=== PATIENT | female | born 1965 | race Caucasian/White ===

== ENCOUNTER 2019-03-14 08:29 | Inpatient (IN) | payer OTHER ==
[~2019-03-14] VITALS: Ht 152.4 cm; Wt 79.4 kg
[2019-03-14 08:32] VITALS: BP 161/80
[2019-03-14] MEDS ORDERED: CENTRUM SILVER1 EAC4 PO (08:39)
[2019-03-14] MEDS ORDERED: TACROLIMUS0.5 MG PO (08:39)
[2019-03-14] MEDS ORDERED: OMEPRAZOLE20 M2 PO (08:39)
[2019-03-14] MEDS ORDERED: IRON325 PO (08:40)
[2019-03-14] MEDS ORDERED: CALCIUM 600 +1 EAC1 PO (08:40)
[2019-03-14 09:39] LABS: ABSOLUTE EOSINOPHILS 0.1 thou/uL (0.0-0.7); ABSOLUTE LYMPHOCYTES 1.1 thou/uL (0.8-5.3); ABSOLUTE MONOCYTES 0.4 thou/uL (0.0-1.2); ABSOLUTE NEUTROPHILS 4.1 thou/uL (1.6-8.1); BASOPHILS 0.6 %; EOSINOPHILS 1.7 %; HEMOGLOBIN 13.8 gm/dL (12.0-15.0); LYMPHOCYTES 19.1 %; MCH 32.6 pg (26.0-34.0); MCHC 34.6 g/dL (28.0-37.0); MCV 94.2 fL (80.0-100.0); MONOCYTES 6.8 %; MPV 8.4 fl. (7.2-11.1); NUCLEATED RBCS 0 /100WBC; PLATELET COUNT* 132 thou/uL (150-400); POLYS 71.8 %; RBC 4.25 mil/uL (4.20-5.00); RDW-CV 13.4 % (10.5-14.5); WBC 5.7 thou/uL (4.0-11.0)
[2019-03-14 09:48] LABS: CALCIUM 8.9 mg/dL (8.5-10.1); POTASSIUM 4.1 mmol/L (3.5-5.1)
[2019-03-14 10:03] LABS: ALBUMIN 3.2 g/dL (3.4-5.0); TOTAL BILIRUBIN 0.4 mg/dL (<0.1-1.0); TOTAL PROTEIN 6.5 g/dL (6.4-8.2); TROPONIN-I LEVEL 0.19 ng/mL (<0.06)
--- NOTE | 2019-03-14 11:17 | NUR ---
REPORT GIVEN TO JANICE TORRES WHO IS TO ASSUME PT CARE INPATIENT NURSE.
[2019-03-14 11:19] VITALS: BP 121/70
[2019-03-14 11:40] VITALS: BP 130/70
[2019-03-14 16:15] VITALS: BP 117/62
--- NOTE | 2019-03-14 19:28 | NUR ---
ASSUMED PT CARE AT 1200, AOX4, UP AD MADI, 02 SAT 90'S RA. PT FROM ER. GET SITUATED TO ROOM. ADMISSION ASSESSMENT DONE. TELE IN PLACED, TRACING SR ON MONITOR. PT ON HEPARIN DRIP. PT HAD CRITICAL TROPONIN NOTIFIED. PT HAD CHEST PAIN AROUND 1816, RELIEVED BY NITROGLYCERIN, DR NOTIFIED. EKG DONE. HOURLY ROUNDING. CALL LIGHT WITHIN REACH. GIVE REPORT TO NURIS. WILL CONTINUE TO MONITOR.
[2019-03-14 20:00] VITALS: BP 126/67
[2019-03-15] VITALS: BP 131/68
[2019-03-15 04:00] VITALS: BP 128/70
[2019-03-15 05:06] LABS: HEMATOCRIT 42.9 % (37.0-47.0); HEMOGLOBIN 14.4 gm/dL (12.0-15.0); MCH 31.8 pg (26.0-34.0); MCHC 33.6 g/dL (28.0-37.0); MCV 94.7 fL (80.0-100.0); MPV 8.9 fl. (7.2-11.1); RBC 4.53 mil/uL (4.20-5.00); RDW-CV 13.3 % (10.5-14.5); WBC 6.7 thou/uL (4.0-11.0)
[2019-03-15 05:19] LABS: CHOLESTEROL 207 mg/dL (<200); HDL CHOLESTEROL 38 mg/dL (>40); LDL CHOLESTEROL 125 mg/dL (<100); TC:HDL 5.4 Ratio (Not establshd); TRIGLYCERIDE 222 mg/dL (<150); VLDL 44 mg/dL (<40)
[2019-03-15 05:47] LABS: SERUM ASSESSMENT CLEAR
[2019-03-15 08:00] VITALS: BP 154/83
--- NOTE | 2019-03-15 10:09 | CON ---
[facility] [address] [place] [address] CONSULTATION Name: CAROLE SORTO Room: [place] [address] ADM IN M.R.#: [id number] Admission: 03/14/19 Attend Phys: Comfort Joe Discharge: Date of : 61 Report #: [id number] THIS REPORT FOR: //name// CC: NIDHI Medeiros INDICATION: Non-ST elevation myocardial infarction. HISTORY OF PRESENT ILLNESS: The patient is a very pleasant 53-year-old white female who presented to the Emergency Room this morning with typical chest discomfort radiating to the jaw and right arm. The pain lasted for approximately 1 hour. She received aspirin and nitroglycerin in the Emergency Room with resolution of her pain. Her troponin has elevated to 0.55 consistent with non-ST elevation myocardial infarction. EKG shows sinus rhythm without ST elevation. There is very subtle ST-segment depression in anterolateral leads. At the time of interview, she is pain free. For the past week, she has been having some midsternal chest discomfort radiating to the jaw and right arm that has been fairly mild and associated with exertion and relieved with rest. This morning when she woke up, she had recurrence of the pain that was more severe. She presented to the Emergency Room. She has no prior cardiac history. Risk factors include tobacco use, hypertension, and family history of premature atherosclerotic coronary artery disease. PAST MEDICAL AND SURGICAL HISTORY: 1. Orthotopic liver transplant. 2. Hepatitis C, resolved with medications. 3. Cholecystectomy. 4. Hysterectomy. 5. Anxiety. 6. Chronic tobacco use. 7. Hypertension. FAMILY HISTORY: The patient's mother and sister both had myocardial infarctions with revascularization. SOCIAL HISTORY: The patient is . She is currently working. She smokes a pack and half cigarettes daily. She drinks alcohol occasionally. ALLERGIES: ERYTHROMYCIN AND CODEINE. HOME MEDICATIONS: Calcium carbonate 1 tablet daily, iron sulfate 325 mg daily, multivitamin 1 tablet daily, omeprazole 20 mg daily, tacrolimus 0.5 [place] [address] CONSULTATION Name: CAROLE SORTO Room: [address] IN [facility]#: [id number] Admission: 03/14/19 Attend Phys: Comfort Joe Discharge: Date of : 61 Report #: [id number] REVIEW OF SYSTEMS: A 14-point review of systems is positive for cough, productive of yellow to brown sputum. She reports chest discomfort, dyspnea and orthopnea. She reports a history of hepatitis C and liver transplant. She reports a history of medical allergies as outlined above. She has anxiety without depression. She wears reading glasses without acute visual loss. Otherwise, 14-point review of systems was unremarkable. Possible claudication. PHYSICAL EXAMINATION: VITAL SIGNS: Stable. Blood pressure 130/70, pulse 71, regular. GENERAL: This is a pleasant lady who is currently in no distress. Mood and affect appropriate. HEENT: Extraocular muscles intact. Mucous membranes moist. NECK: Shows no jugular venous distention. There are no carotid bruits. CHEST: Reveals clear lung nielsen without wheezes or rales. CARDIOVASCULAR: Reveals regular rhythm, normal S1 and S2. I do not appreciate gallop or murmur. ABDOMEN: Reveals normal bowel sounds. The abdomen is soft, nontender. EXTREMITIES: Shows no edema. She has a good distal pulse in the right lower extremity. Diminished distal pulses in the left lower extremity. LABORATORY DATA: Reviewed. Sodium 142, potassium 4.1, chloride 108, bicarbonate 25, BUN 15, creatinine 1.0. Serum glucose 132. LFTs within normal limits. Albumin 3.2. Troponin initially 0.19 and now 0.55. NT-proBNP 880. White blood cell count 5.7, hemoglobin 13.8, platelet count 132,000. Chest x-ray shows normal cardiac silhouette without acute abnormality. IMPRESSION AND RECOMMENDATIONS: Non-ST elevation myocardial infarction. We will continue aspirin, start heparin drip, start beta ana. PLAN: 1. Coronary angiography with intervention pending results of that test. 2. Hypertension. Start metoprolol 25 mg b.i.d. 3. Possible hyperlipidemia. We will check fasting lipid profile. 4. Chronic tobacco use, cessation advised. 5. Family history of premature atherosclerotic coronary artery disease. <ELECTRONICALLY SIGNED> By: Omkar Clements MD, FACC 03/15/19 1009 1238 [id number] Clements MD, FACC /nt
--- NOTE | 2019-03-15 11:31 | NUR ---
ASSUMED PT CARE AT O800, AOX4, UP AD MADI, O2 SAT 90'S RA. TRACING SR ON TELE. DENIES PAIN. PT HAS HEPARIN DRIP. FOR HEART CATH TOMORROW. VSS, AM ASSESSMENT CHARTED. MEDS GIVEN PER MAR. HOURLY ROUNDING. CALL LIGHT WITHIN REACH. WILL CONTINUE TO MONITOR.
[2019-03-15 12:00] VITALS: BP 132/75
[2019-03-15 13:22] LABS: INR 1.1; PROTIME 10.8 Seconds (9.20-11.50)
[2019-03-15 16:00] VITALS: BP 100/49
--- NOTE | 2019-03-15 19:57 | NUR ---
APTT THERAPEUTIC 67.9, NEXT APTT ENTERED IN COMPUTER TO BE DRAWN ON 03/16/19 IN AM PER PROTOCOL. NO S/S ACTIVE BLEEDING NOTED AT PRESENT TIME.
[2019-03-15 20:00] VITALS: BP 125/48
[2019-03-16] VITALS (8 sets, daily range): BP systolic 113–149; BP diastolic 55–80
--- NOTE | 2019-03-16 05:53 | NUR ---
PROGRESSING TOWARDS GOALS, AWAKE UP IN ROOM WITH STEADY GAIT OFF AND ON DURING NOC, DENIES CP OR DISCOMFORT, RESP EVEN AND NONLABORED ON RA, CONTINUES ON HEPARIN GTT VIA INFUSION PUMP, NO S/S ACTIVE BLEEDING NOTED. 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
--- NOTE | 2019-03-16 07:46 | NUR ---
INITIAL ASSESSMENT COMPLETED CHARTED. VSS. TRACING SR ON MONITOR. PT IS UP AD MADI WITH STEADY GAIT. CONSENT OBTAINED FOR PROCEDURE TODAY. PT IS CURRENTLY NPO FOR UPCOMING PROCEDURE. DENIES PAIN, CP, SOA, N/V/D AT THIS TIME. HOURLY ROUNDING IN PLACE FOR PT SAFETY. CLWR.
--- NOTE | 2019-03-16 12:19 | EKG ---
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
--- NOTE | 2019-03-16 12:24 | EKG ---
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
[2019-03-17] VITALS: BP 146/81
[2019-03-17 04:00] VITALS: BP 152/60
[2019-03-17 04:36] LABS: HEMATOCRIT 40.6 % (37.0-47.0); HEMOGLOBIN 13.9 gm/dL (12.0-15.0); MCH 32.5 pg (26.0-34.0); MCHC 34.3 g/dL (28.0-37.0); MCV 94.8 fL (80.0-100.0); MPV 8.9 fl. (7.2-11.1); RBC 4.28 mil/uL (4.20-5.00); RDW-CV 13.7 % (10.5-14.5)
[2019-03-17 05:39] LABS: ALBUMIN 3.2 g/dL (3.4-5.0); CALCIUM 9.1 mg/dL (8.5-10.1); CREATININE 1.1 mg/dL (0.6-1.3); TOTAL BILIRUBIN 0.4 mg/dL (<0.1-1.0); TOTAL PROTEIN 6.7 g/dL (6.4-8.2)
[2019-03-17 05:53] LABS: TROPONIN-I LEVEL 0.65 ng/mL (<0.06)
[2019-03-17 08:00] VITALS: BP 125/61
--- NOTE | 2019-03-17 08:07 | NUR ---
ASSUMED PT CARE AT 1930. ASSESSMENT COMPLETED CHARTED. ABLE TO MAKE NEEDS KNOWN. UP AD MADI. PT TOOK SHOWER THIS MORNING AFTER A TV WOKE HER UP. NO C/O PAIN OR DISCOMFORT. RIGHT GROIN SITE IS C/D/I WITH NO BRUISING NOTED BUT PT STATED IT WAS SLIGHTLY TENDER TO TOUCH. PT RESTING IN BED AT THIS TIME. WILL CONTINUE TO MONITOR.
[2019-03-17 10:30] VITALS: BP 149/80
[2019-03-17 11:30] VITALS: BP 123/64
--- NOTE | 2019-03-17 12:53 | NUR ---
ASSUMED CARE OF PATIENT THIS AM AT 0730. PATIENT IS ALERT AND ORIENTED X 4. SHE DENIES CHEST PAIN AND SOA. CARDIOLOGY IN TO ROUND. PLANS DISCHARGE TODAY. TELE SHOWS NSR. RIGHT GROIN SITE IS D AND INTACT AND WITHOUT HEMATOMA.
[2019-03-17] MEDS ORDERED: NITROGLYCERIN0.4 MG SUBLING (13:13)
[2019-03-17] MEDS ORDERED: LIPITOR 20 MG T20 M1 PO (13:14)
[2019-03-17] MEDS ORDERED: LISINOPRIL10 MG PO (13:14)
[2019-03-17] MEDS ORDERED: ASPIR 8181 MG PO (13:15)
[2019-03-17] MEDS ORDERED: EFFIENT10 MG PO (13:16)
[2019-03-17] MEDS ORDERED: LOPRESSOR50 PO (13:17)
--- NOTE | 2019-03-17 15:54 | EKG ---
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: : 1965 Requested By: Jonathan Mcdonnell Order Number: [id number] Jesus MD: Omkar Clements Measurements Intervals [place] Rate: 69 P: 56 [place]: 155 QRS: 29 QRSD: 109 T: 1 QT: 415 QTc: 445 Interpretive Statements Sinus rhythm Minimal ST elevation, anterior leads Baseline wander in lead(s) V6 Compared to ECG 03/14/2019 18:46:12 ST (T wave) deviation now present Electronically Signed On 03-17-2019 15:54:17 CDT by Omkar Clements [email or web address] <ELECTRONICALLY SIGNED> By: Omkar Clements MD, FACC 03/17/19 1554 0541 0541 Omkar Clements MD, [facility] /EPI
--- NOTE | 2019-03-21 11:48 | CARD ---
[address] [address] CARDIAC CATH REPORT Name: CAROLE SORTO Room: [address] IN [facility]#: [id number] Admission: 03/14/19 Attend Phys: Comfort Joe Discharge: 03/17/19 Date of : 61 Report #: [id number] THIS REPORT FOR: //name// APPROVED REPORT Study performed: 03/16/2019 14:29:51 Patient Details Patient Status: In-Patient Room #: The patient is a 53 year-old female Event Personnel Jonathan Mcdonnell Chart Snatcher, Jonathan Mcguire (Cristiane) Blake Prince Jill RN Road Test Examiner, Iraj Ibrahim BLOOD BANK LABORATORY PROFESSIONAL Monitor, Yessenia Caldwell RTR Monitor, Kymberly Deluca RTR Monitor Procedures Performed Left Heart Cath w/or w/o Coronaries [id number] [facility] Place w/wo Plasty Single RCA [id number] , Selective Right and Left Coronary Angiography Indication Non-STEMI Risk Factors Hypercholesterolemia Admission/Lab Medications/Medications given during procedure Angiomax bolus and infusion Procedure Narrative The patient was brought electively to the Cardiac Catheterization Laboratory and was prepped and draped in a sterile manner. The right femoral was infiltrated with 2% Lidocaine subcutaneous anesthesia. A [place] 6 FR sheath was inserted into the RFA. Coronary angiography was performed using coronary diagnostic catheters. The right coronary system was accessed and visualized with a 3DRC 6fr catheter. The left coronary system was accessed and visualized with a JL4 catheter. The left ventricle was accessed and visualized with a PIG catheter. Left ventricular/Aortic Valve gradient assessed via catheter pullback. Pre-demployment femoral angiogram was performed . Closure device was deployed with a 6 Fr Angioseal STS 6Fr. The patient tolerated the procedure well and there were no complications associated with the procedure. [place] [address] CARDIAC CATH REPORT Name: NOREENCAROLEKENAN YEPEZ Room: [address] IN ..#: [id number] Admission: 03/14/19 Attend Phys: Comfort Joe Discharge: 03/17/19 Date of : 61 Report #: [id number] Intraoperative Conscious Sedation Fentanyl 25 mcg Dose: 1515 mGy Contrast Type and Amount: Visipaque 360 ml Coronary Angiography The patient's coronary anatomy is right dominant. Diagnostic Cath Left Main 0% narrowing LAD 30% mid vessel narrowing Circumflex 40% narrowing of the first and second marginal branches with 80% mid circumflex stenosis Right Coronary Large dominant vessel with 90% mid vessel stenosis and prominent intraluminal thrombus Left Ventriculography The left ventricle is normal in size with normal contractility. The left ventricular ejection fraction is estimated to be 60%. Left ventricular wall motion abnormalities are not present. There is no mitral insufficiency. Hemodynamics The aortic pressure is 130/61 mmHg with a mean of 85 mmHg. The left ventricular pressure is 129/-2 mmHg with a mean of mmHg. The left ventricular end diastolic pressure is 18 mmHg. There was no gradient across the aortic valve upon pullback. PCI Technique Lesion Patient was preloaded with Angiomax IV 12 mg per kg. Percutaneous coronary intervention was performed on the mid right coronary artery. The lesion stenosis prior to intervention was 90% with BEST 3 flow. A 6F 3DRC Guide Catheter was used to engage the Right ostium. A Mini Trek RX 2.0 X 12 Interventional Guidewire was used to cross the lesion. BALLOON DILATION A Balloon catheter Mini Trek RX 2.0 X 12 was inserted and inflated up to 12atm for 15seconds. STENT DEPLOYMENT A stent Randolph RX Stent 2.66I17cn,2.5x12 was inserted and inflated up to 14.00atm for 6seconds. Final angiography reveals 0 % stenosis with BEST 3 [place] [address] CARDIAC CATH REPORT Name: CAROLE SORTO Room: [address]#: [id number] Admission: 03/14/19 Attend Phys: Comfort Joe Discharge: 03/17/19 Date of : 61 Report #: [id number] Stent Deployment A stent Randolph RX Stent 2.5X12mm was inserted and inflated up to jany for seconds. Conclusion #1 Significant coronary artery disease characterized by the following: A 30% mid LAD narrowing B nondominant circumflex with 40% first and second marginal narrowing and 80% mid vessel stenosis C large dominant right coronary artery with 90% mid vessel stenosis and local thrombus at the site #2 normal left ventricular systolic function, estimate ejection fraction being 60% #3 modest elevation of left ventricular end-diastolic pressure at rest #4 successful percutaneous coronary intervention with deployment of sequential drug-eluting stents at the site of 90% mid right coronary stenosis with 0% residual narrowing following stent deployment and BEST-3 flow to the distal vessel with no residual thrombus Recommendations Cardiac Risk Reduction Program Aggressive Medical Therapy Medications Administered Aspirin (any) Prasugrel Diagnostic Cath Approved by: Jonathan Mcdonnell MD Date/Time: 03/21/2019 11:47:38 <ELECTRONICALLY SIGNED> By: Jonathan Mcdonnell MD, [facility] 03/21/19 1148 1148 1148Jonathan Mcdonnell MD, FACC /INF
== END 2019-03-17 13:30 | disposition home or self-care (01) | DRG 246 ==
LOC: M.ERS 08:29 → M.TBA-ER 10:22 → M.2W 10:22
PROVIDERS: Emergency Medicine Emergency Medical Services; Internal Medicine; Internal Medicine Cardiovascular Disease; ADMIT Internal Medicine
DX: I21.4 Non-ST elevation (NSTEMI) myocardial infarction (principal); I50.33 Acute on chronic diastolic (congestive) heart failure; Z94.4 Liver transplant status; F41.9 Anxiety disorder, unspecified; I10 Essential (primary) hypertension; F17.210 Nicotine dependence, cigarettes, uncomplicated; Z86.19 Personal history of other infectious and parasitic diseases; Z90.49 Acquired absence of other specified parts of digestive tract; Z90.710 Acquired absence of both cervix and uterus; Z82.49 Family history of ischemic heart disease and other diseases of the circulatory system; Z88.6 Allergy status to analgesic agent; Z88.1 Allergy status to other antibiotic agents; Z71.6 Tobacco abuse counseling; Z79.899 Other long term (current) drug therapy

== ENCOUNTER 2019-04-02 10:37 | Observation (INO) | payer OTHER ==
[~2019-04-02] VITALS: Ht 160 cm; Wt 74.8 kg
[2019-04-02] VITALS (10 sets, daily range): BP systolic 90–127; BP diastolic 52–80
[~2019-04-02 10:37] MED LIST: ASPIR 8181 MG PO; CALCIUM 600 +1 EAC1 PO; CENTRUM SILVER1 EAC4 PO; EFFIENT10 MG PO; IRON325 PO; LIPITOR 20 MG T20 M1 PO; LISINOPRIL10 MG PO; LOPRESSOR50 PO; NITROGLYCERIN0.4 MG SUBLING; OMEPRAZOLE20 M2 PO; TACROLIMUS0.5 MG PO
[2019-04-02 11:44] LABS: HEMOGLOBIN 13.7 gm/dL (12.0-15.0); MCHC 34.2 g/dL (28.0-37.0); MCV 93.5 fL (80.0-100.0); MPV 9.1 fl. (7.2-11.1); RBC 4.28 mil/uL (4.20-5.00); RDW-CV 12.9 % (10.5-14.5); WBC 9.3 thou/uL (4.0-11.0)
[2019-04-02 11:48] LABS: ANION GAP 10 mmol/L (7-16); BUN 28 mg/dL (7-18); CALCIUM 9.7 mg/dL (8.5-10.1); CHLORIDE 105 mmol/L (98-107); CO2 24 mmol/L (21-32); CREATININE 1.3 mg/dL (0.6-1.3); GLUCOSE 137 mg/dL (70-99); POTASSIUM 4.2 mmol/L (3.5-5.1); SODIUM 139 mmol/L (136-145)
[2019-04-02 11:49] LABS: INR 1.1; PROTIME 10.9 Seconds (9.20-11.50)
[2019-04-02 11:53] LABS: CHOLESTEROL 134 mg/dL (<200); HDL CHOLESTEROL 38 mg/dL (>40); LDL CHOLESTEROL 58 mg/dL (<100); TC:HDL 3.5 Ratio (Not establshd); TRIGLYCERIDE 190 mg/dL (<150); VLDL 38 mg/dL (<40)
[2019-04-02 11:54] LABS: SERUM ASSESSMENT Clear
--- NOTE | 2019-04-02 12:10 | EKG ---
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
--- NOTE | 2019-04-02 13:55 | CARD ---
[address] [address] CARDIAC CATH REPORT Name: CAROLE SORTO Room: [address] M.RLucian#: [id number] Admission: 04/02/19 Attend Phys: Jonathan Mcdonnell MD, Discharge: Date of : 61 Report #: [id number] THIS REPORT FOR: //name// APPROVED REPORT Study performed: 04/02/2019 11:59:00 Patient Details Patient Status: Observation Room #: Event Personnel Dr. Mcdonnell Procedures Performed Left heart catheterization selective coronary artery and percutaneous coronary intervention with deployment of drug-eluting stent in the mid circumflex Indication Unstable angina Risk Factors Hypercholesterolemia, Hypertension Previous Procedures/Diagnoses Previous PCI, Previous [place] Admission/Lab Medications/Medications given during procedure Angiomax bolus and infusion Procedure Narrative The patient was brought electively to the Cardiac Catheterization Laboratory and was prepped and draped in a sterile manner. The right femoral was infiltrated with 2% Lidocaine subcutaneous anesthesia. A 6 [place] sheath was inserted into the right femoral artery. Coronary angiography was performed using coronary diagnostic catheters. The right coronary system was accessed and visualized with a Diagnostic catheter. The left coronary system was accessed and visualized with a Diagnostic catheter. The left ventricle was accessed and visualized with a Diagnostic catheter. Left ventricular/Aortic Valve gradient assessed via catheter pullback. Pre-demployment femoral angiogram was performed . Closure device was deployed with a 6 Fr Angioseal. There was no hematoma. Diagnostic Cath [address] [place] [address] CARDIAC CATH REPORT Name: CAROLE SORTO Room: [address] M.R.#: [id number] Admission: 04/02/19 Attend Phys: Jonathan Mcdonnell MD, Discharge: Date of : 61 Report #: [id number] Left Main 10% distal narrowing LAD 20% mid LAD narrowing Circumflex 40 Percent first and second marginal narrowing with 80% mid circumflex stenosis Right Coronary 40% Ostial narrowing which may reflect catheter induced spasm followed by widely patent proximal and mid right coronary stents with 30% mid and distal right coronary narrowing Left Ventriculography Left Ventriculography was not performed. Hemodynamics The aortic pressure is 90/60 mmHg with a mean of mmHg. The left ventricular pressure is 18 mmHg with a mean of mmHg. There was no gradient across the aortic valve upon pullback. PCI Technique Lesion Anticoagulation was achieved with Angiomax. Percutaneous coronary intervention was performed on the mid circumflex. The lesion stenosis prior to intervention was 80% with BEST 3 flow. A 6 [place] XB 3 Guide Catheter was used to engage the ostium. A 014 [employer] flex Interventional Guidewire was used to cross the lesion. BALLOON DILATION A Balloon catheter 2.0 x 12 trek was inserted and inflated up to 10atm for 15seconds. STENT DEPLOYMENT A drug-eluting stent 2.0 x 12 anton was inserted and inflated up to 10atm for 10seconds. Final angiography reveals 0 % stenosis with BEST 3 flow. Conclusion #1 significant coronary artery disease characterized by the following: A 10% distal left main coronary artery narrowing B 20 percent mid LAD narrowing C nondominant circumflex with 40% first and second marginal narrowing and 80% [place] [address] CARDIAC CATH REPORT Name: CAROLE SORTO Room: [address] [place]#: [id number] Admission: 04/02/19 Attend Phys: Jonathan Mcdonnell MD, Discharge: Date of : 61 Report #: [id number] D dominant right coronary artery with 40% ostial narrowing which may reflect catheter induced spasm followed by widely patent proximal and mid right coronary stents with 30% mid and distal right coronary narrowing #2 moderate elevation of left ventricular end-diastolic pressure pressure at rest #3 successful percutaneous coronary intervention with deployment of drug-eluting stent at site of 80% midcircumflex stenosis with 0% residual narrowing and BEST-3 flow to the distal vessel Recommendations Cardiac Risk Reduction Program Aggressive Medical Therapy Medications Administered Aspirin (any) Prasugrel Diagnostic Cath Approved by: Jonathan Mcdonnell MD Date/Time: 04/02/2019 13:51:58 <ELECTRONICALLY SIGNED> By: Jonathan Mcdonnell MD, [facility] 04/02/19 1355 1355 1355Jonathan Mcdonnell MD, FACC /INF
--- NOTE | 2019-04-02 15:17 | EKG ---
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
--- NOTE | 2019-04-02 18:39 | NUR ---
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 RECEIVED REPORT PT AT 1350, AOX4, O2 SAT 90'S RA. GET SITUATED TO ROOM. TELE IN PLACED TRACING SR ON MONITOR. BEDREST POST CATH. VS MONITORED. R GROIN SITE C/D/I. PT COMPLAINS OF PAIN, MEDS GIVEN. I AGREE WITH ART ADMISSION ASSESSMENT. UNIT ADMISSION DONE. HOURLY ROUNDING OBSERVED, CALL LIGHT WITHIN REACH, WILL CONTINUE TO MONITOR.
[2019-04-03] VITALS: BP 85/39
[2019-04-03 03:47] VITALS: BP 113/61
[2019-04-03 03:48] LABS: HEMATOCRIT 32.6 % (37.0-47.0); MCH 32.5 pg (26.0-34.0); MCHC 34.6 g/dL (28.0-37.0); MCV 93.8 fL (80.0-100.0); MPV 9.2 fl. (7.2-11.1); RBC 3.47 mil/uL (4.20-5.00); RDW-CV 13.1 % (10.5-14.5); WBC 4.9 thou/uL (4.0-11.0)
[2019-04-03 04:08] LABS: ALBUMIN 2.7 g/dL (3.4-5.0); CALCIUM 8.3 mg/dL (8.5-10.1); HEMOGLOBIN 11.3 gm/dL (12.0-15.0); POTASSIUM 4.4 mmol/L (3.5-5.1); TOTAL BILIRUBIN 0.2 mg/dL (<0.1-1.0); TOTAL PROTEIN 5.7 g/dL (6.4-8.2); TROPONIN-I LEVEL 0.09 ng/mL (<0.06)
--- NOTE | 2019-04-03 06:54 | NUR ---
ASSUMED PT CARE AT 1930. ASSESSMENT COMPLETED CHARTED. ABLE TO MAKE NEEDS KNOWN. NO C/O PAIN OR DISCOMFORT. UP AD MADI, IV FLUIDS RUNNING PER ORDERS. PT UPSET ALL NIGHT ABOUT CATH PROCEDURE. PT RESTING IN BED AT THIS TIME, WILL CONTINUE TO MONITOR.
[2019-04-03 08:00] VITALS: BP 113/56
[2019-04-03 10:46] VITALS: BP 113/56
[2019-04-03 11:04] VITALS: BP 113/56
--- NOTE | 2019-04-03 11:14 | EKG ---
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: [facility] : 1965 Requested By: Jonathan Mcdonnell Order Number: [id number] Jesus MD: Jomar Jim Measurements Intervals [place] Rate: 75 P: 62 ND: 166 QRS: 42 QRSD: 97 T: 12 QT: 407 QTc: 455 Interpretive Statements Sinus rhythm Low voltage, precordial leads Compared to ECG 04/02/2019 14:00:21 Low QRS voltage now present Electronically Signed On 04-03-2019 11:13:52 CDT by Jomar Jim [email or web address] <ELECTRONICALLY SIGNED> By: Jomar Jim MD, [facility] 04/03/19 1113 0545 0545 Jomar Jim MD, [facility] /EPI
--- NOTE | 2019-04-03 12:30 | NUR ---
ASSUMED PT CARE AT 0730, FULL ASSESMENT DONE CHARTED.PT A/O X4, IRRITABLE, C/O PAIN AT RIGHT GROIN SITE WITH MOVEMENT AND TOUCH. MES GIVEN PER OCT. RIGHT GROIN DRESSING C/D/I, NO S/S HEMATOMA OR BLEEDING. PTS VSS, SR ON THE MONITOR. RECIEVED DISCHARGE ORDERS. REVIEWED DISCHARGE INSTRUCTIONS WITH PT AND HER , BOTH VERBALIZED UNDERSTANDING. PT DISCHARGED HOME WITH ALL BELONGINGS AT APPROX 1140
--- NOTE | 2019-04-03 14:20 | D ---
[address] [address] DISCHARGE SUMMARY Name: CAROLE SORTO Room: [address] Boaz MKateryna#: [id number] Admission: 04/02/19 Attend Phys: Jonathan Mcdonnell MD, Discharge: 04/03/19 Date of : 61 Report #: [id number] THIS REPORT FOR: //name// CC: Alonso Mcdonenll DATE OF SERVICE: 04/03/2019 FINAL DISCHARGE DIAGNOSES: 1. Unstable angina. 2. Coronary artery disease. 3. Status post recent non-ST segment elevation myocardial infarction. 4. Hypertension. 5. Hypercholesterolemia. PROCEDURES: On 04/02/2019 -- left heart catheterization, selective coronary arteriography and percutaneous coronary intervention of the mid circumflex. The patient is a 53-year-old female with coronary artery disease, approximately 10 days status post non-ST segment elevation myocardial infarction. I performed the intervention of the right coronary artery, deploying 2 drug-eluting stents with a good angiographic result and no residual thrombus at that site. She presented yesterday with recurrent chest discomfort and underwent re-catheterization, which revealed widely patent proximal and mid right coronary stents with 90% stenosis in the mid portion of the nondominant circumflex. There was mild LAD disease. I performed percutaneous coronary intervention of the circumflex, deploying one 2.0 x 12 mm [place] drug-eluting stent in the mid circumflex with 0% residual narrowing and BEST 3 flow of the distal vessel. The patient did well post-procedurally with minimal discomfort at the right femoral site postprocedurally. She ambulated without difficulty and there was no hematoma and good healing at the right femoral site. LABORATORY DATA: On 04/03/2019 revealed a sodium of 144, potassium 4.4, BUN 19, creatinine 1.0, glucose 95. Hemoglobin 11.3, white blood cell count 4900 with 118,000 platelets. Cholesterol 134, triglycerides 190, HDL 38, and LDL 58. The patient ambulated without difficulty and was discharged to home on the following medications: Aspirin 81 mg daily, atorvastatin 20 mg daily, calcium carbonate, vitamin D3 one tablet daily, ferrous sulfate 325 mg daily, Lisinopril 10 mg daily, metoprolol tartrate 50 mg b.i.d., multivitamin with minerals, Centrum Silver 1 tablet daily, omeprazole 20 mg daily, prasugrel 10 mg daily with 30 mg kerry-procedural dose, tacrolimus 1 mg b.i.d., and p.r.n. sublingual nitroglycerin. The patient is scheduled to see my nurse practitioner, [place] [address] DISCHARGE SUMMARY Name: CAROLE SORTO Room: [address] TOBY Calloway#: [id number] Admission: 04/02/19 Attend Phys: Jonathan Mcdonnell MD, Discharge: 04/03/19 Date of : 61 Report #: [id number] 04/10/2019 at 08:30 and myself on 0260-2027. Therefore, the patient is discharged to home in stable condition on the aforementioned medications with followup as indurated above. <ELECTRONICALLY SIGNED> By: Jonathan Mcdonnell MD, MERGED WITH [facility] 04/03/19 1420 0930 [id number] Mcdonnell MD, FAC /nt
== END 2019-04-03 11:44 | disposition home or self-care (01) ==
LOC: M.CL 10:37 → M.TBA-CV 13:33 → M.2W 13:33
PROVIDERS: ADMIT Internal Medicine
DX: I25.110 Atherosclerotic heart disease of native coronary artery with unstable angina pectoris (principal); I10 Essential (primary) hypertension; E78.00 Pure hypercholesterolemia, unspecified; I21.4 Non-ST elevation (NSTEMI) myocardial infarction; E78.5 Hyperlipidemia, unspecified; M79.605 Pain in left leg; Z72.0 Tobacco use; Z79.82 Long term (current) use of aspirin; Z79.899 Other long term (current) drug therapy

== ENCOUNTER → 2020-04-07 | Outpatient (CLI) | payer BC ==
[~2020-04-07] MED LIST changes: +CARAFATE 1 GM TA1 G1 PO; +PANTOPRAZOLE SO40 M1 PO
--- NOTE | 2020-04-07 15:53 | CARDNUC ---
[place] [address] CARDIAC NUCLEAR IMAGING REPORT Name: CAROLE SORTO Room: [facility]#: [id number] Admission: 04/07/20 Attend Phys: Rox Fish Discharge: Date of : 61 Date of Service: 04/07/20 1552 Report #: [id number] THIS REPORT FOR: cc: Alonso Vieyra MD, Dylan MD Liston,Omkar Oliva MD [facility] ~ APPROVED REPORT Study performed: 04/07/2020 14:22:49 Exam: Nuclear Stress Test Indication: Pre-Operative CV evaluation Patient Location: Out-Patient Stress Tech: [facility] Stress Nurse: Jessica Bean RN Ht: 5 ft 3 in Wt: 176 lbs BSA: 1.83 m2 BMI: 31.17 Medical History Medical History: HTN, Hyperlipidemia Medications: asa-81, atorvastatin, lisinopril, metoprolol, ntg, effient Allergies: codeine, ees Cardiac Risk Factors: Age, Current Smoker, HTN, Hyperlipidemia Exercise History: Indeterminate Meds Held (24 hrs): metoprolol Stress Test Details Stress Test: Pharmacologic stress testing performed using 0.4 mg of regadenoson per 5 mL given IV over 10 seconds. Reason for pharmacologic stress test: dvt in leg. HR Resting HR: 82 bpm Max Heart Rate (APMHR): 164 bpm Max HR Achieved: 110 bpm Target HR (85% APMHR): 139 bpm % of APMHR: 67 Recovery HR: 103 bpm BP Resting BP: 117/71 mmHg Max BP: 102/58 [place] [address] CARDIAC NUCLEAR IMAGING REPORT Name: CAROLE SORTO Room: [facility]#: [id number] Admission: 04/07/20 Attend Phys: Rox Fish Discharge: Date of : 61 Date of Service: 04/07/20 1552 Report #: [id number] ECG Resting ECG: Sinus Rhythm Stress ECG: Sinus Tachycardia ST Change: None Arrhythmia: None Recovery ECG: Sinus Rhythm Recovery ST Change: None Recovery Arrhythmia: None Clinical Reason for Termination: Completed protocol The patient tolerated Lexiscan infusion without significant cardiac symptoms. Stress ECG Conclusion The baseline twelve-lead EKG shows sinus rhythm without significant ST segment or T wave abnormality. EKGs obtained during and post Lexiscan infusion shows sinus rhythm and sinus tachycardia with no significant ST segment changes when compared to baseline. There were no stress-induced arrhythmias. NM EXAM: Myocardial Perfusion REST/STRESS Imaging Protocol: Rest Tc-99m/Stress Tc-99m 1 day Resting Data Rest SPECT myocardial perfusion imaging was performed in supine position 30 minutes following the intravenous injection of 10.8 mCi of Tc-99m Sestamibi. Time of rest injection: 13:00 The images were gated to evaluate regional wall motion and calculate left ventricular ejection fraction. Administration Route: IV Administration Site: Right Hand Pharmacologic Stress Pharmacologic stress test was performed by injecting Regadenoson 0.4 mg IV push followed by the intravenous injection of 30.6 mCi of Tc-99m Sestamibi. Time of stress injection: 14:20 Administration Route: IV Administration Site: Right Hand Heart Rate at time of stress injection: 110 bpm. Gated Stress SPECT was performed 40 minutes after stress injection. The images were gated to evaluate regional wall motion and calculate left [place] [address] CARDIAC NUCLEAR IMAGING REPORT Name: CAROLE SORTO Room: [facility]#: [id number] Admission: 04/07/20 Attend Phys: Rox Fish Discharge: Date of : 61 Date of Service: 04/07/20 1552 Report #: [id number] Prone imaging was performed. Study Quality Study: Good Artifact: Mild Diaphragmatic artifact Study Data Post stress, the left ventricular ejection was 83%.. Perfusion Perfusion images obtained at rest and post stress showed uniform uptake of the radioisotope throughout the myocardium without defect. Wall Motion Normal left ventricular wall motion. Nuclear Conclusion ECG Findings: negative for ischemia Clinical Findings: negative for ischemia Nuclear Findings: negative for ischemia Exercise Capacity: not assessed Left Ventricular Function: normal Risk Study: low Perfusion study show no defect to suggest infarct or ischemia. Left ventricular systolic function appears normal on gated studies. This is a low risk study. <Conclusion> The baseline twelve-lead EKG shows sinus rhythm without significant ST segment or T wave abnormality. EKGs obtained during and post Lexiscan infusion shows sinus rhythm and sinus tachycardia with no significant ST segment changes when compared to baseline. There were no stress-induced arrhythmias. <ELECTRONICALLY SIGNED> By: Omkar Clements MD, FACC 04/07/20 1552 1552 1552 Omkar Clements MD, FACC /INF
== END ==
LOC: M.NUC 11-25 16:52
PROVIDERS: ATTEND Internal Medicine
DX: R00.0 Tachycardia, unspecified (principal); I25.10 Atherosclerotic heart disease of native coronary artery without angina pectoris; I21.4 Non-ST elevation (NSTEMI) myocardial infarction; E78.00 Pure hypercholesterolemia, unspecified; Z72.0 Tobacco use; Z95.5 Presence of coronary angioplasty implant and graft